=== PATIENT | male | born 1980 | race African-American/Black ===

== ENCOUNTER 2018-12-07 10:13 | Outpatient (CLI) | payer OTHER ==
--- NOTE | 2018-12-07 13:24 | CT ---
CT OF THE ABDOMEN AND PELVIS WITH IV CONTRAST: 12/07/18 PROVIDED CLINICAL HISTORY: Umbilical pain. FINDINGS: The visualized lung bases are free of significant opacity. The liver, spleen, pancreas, kidneys, and adrenal glands demonstrate no significant abnormality. There is a thickened appearance and enhancement of the subcutaneous fat and cutaneous structures of t he umbilicus. There is no evidence for umbilical hernia. There is no bowel dilatation, intraperitoneal fat stranding, free fluid or lymph node enlargement roro arent. Prominent by number, but not pathologically enlarged retroperitoneal lymph nodes are seen. The osseous structures demonstrate no concerning lytic or blastic lesions. IMPRESSION: Nonspecific cutaneous thickening and enhancement as well as mild stranding of the subcutaneous fat in the region of the umbilicus. Correlate with concerns for cellulitis. POS: [facility]
== END 2018-12-07 10:14 | disposition home or self-care (01) ==
LOC: BICCT 10:13
PROVIDERS: ATTEND Specialist
DX: R10.33 Periumbilical pain (principal); R19.8 Other specified symptoms and signs involving the digestive system and abdomen
CPT/HCPCS: 74177